=== PATIENT | male | born 1990 | race Caucasian/White ===

== ENCOUNTER 2022-05-23 08:23 | Emergency (ER) | payer SELFPAY ==
[2022-05-23 08:30] VITALS: BP 145/89; PULSE 79; RESP 19; TEMP 36.6; O2SAT 99; BMI 28.8
[2022-05-23 08:54] VITALS: BP 0/0; PULSE 0; RESP 0; TEMP -17.7; TEMP 0
--- NOTE | 2022-05-23 08:55 | PC.NURSE ---
PT CAME OUT OF ROOM STATING HE WAS LEAVING AND GOING HOME BECAUSE HE DIDN'T FEEL LIKE SITTING IN THE ROOM TO WAIT ON THE PROVIDER
== END 2022-05-23 08:55 | disposition left against medical advice (07) ==
LOC: UTC 08:29
PROVIDERS: Emergency Provider Nurse Practitioner
DX: Z53.21 Procedure and treatment not carried out due to patient leaving prior to being seen by health care provider (principal)